=== PATIENT | male | born 1985 | race American Indian/Alaskan Native ===

== ENCOUNTER 2019-03-10 08:47 | Day surgery (SDC) | payer MEDICAID ==
[~2019-03-10] VITALS: Ht 188 cm; Wt 119.7 kg
[2019-03-10] MEDS ORDERED: LIDOcaine 1% 30ml preserv. free vial SQ STA (09:09)
[2019-03-10] MEDS ORDERED: LISI40TA4 PO (09:17)
[2019-03-10] MEDS ORDERED: LABE100T5 PO (09:17)
[2019-03-10] MEDS ORDERED: CALC667T6 PO (09:17)
[2019-03-10 09:21] VITALS: BP 115/67
[2019-03-10 09:32] LABS: BASOPHILS # (AUTO) 0.1 X10'3 (0-0.2); BASOPHILS % (AUTO) 1.2 % (0-1); EOSINOPHILS # (AUTO) 0.1 X10'3 (0-0.9); EOSINOPHILS % (AUTO) 2.8 % (0-6); HEMATOCRIT 28.1 % (42.0-52.0); HEMOGLOBIN 9.6 g/dl (14.0-17.9); LYMPHOCYTES # (AUTO) 1.5 X10'3 (1.1-4.8); LYMPHOCYTES % (AUTO) 30.3 % (21-51); MEAN CORPUSCULAR HGB CONC 34.3 g/dL (33.0-36.5); MEAN PLATELET VOLUME 8.5 FL (7.4-10.4); MONOCYTES # (AUTO) 0.6 X10'3 (0-0.9); MONOCYTES % (AUTO) 11.4 % (2-12); NEUTROPHILS # (AUTO) 2.7 X10'3 (1.8-7.7); NEUTROPHILS % (AUTO) 54.3 % (42-75); PLATELET COUNT 53 X10'3 (140-440); RED BLOOD COUNT 2.46 X10'6 (4.70-6.10); RED CELL DISTRIBUTION WIDTH 16.5 % (11.5-14.5); WHITE BLOOD COUNT 5.1 X10'3 (4.5-11.0)
[2019-03-10 09:40] LABS: ALBUMIN 3.3 G/DL (3.4-5.0); ANION GAP 16 (8-16); BLOOD UREA NITROGEN 44 MG/DL (7-18); BUN/CREATININE RATIO 4.4 (5.4-32.0); CALCIUM 8.5 MG/DL (8.5-10.1); CHLORIDE 98 MMOL/L (99-107); CREATININE 10.02 MG/DL (0.60-1.10); GLUCOSE 96 MG/DL (70-104); POTASSIUM 4.9 MMOL/L (3.5-5.1); SODIUM 136 MMOL/L (135-145); TOTAL CARBON DIOXIDE 21.9 MMOL/L (24-32); eGFR 6 ML/MIN
[2019-03-10 09:45] VITALS: BP 115/67
[2019-03-10 09:50] VITALS: BP 114/62
[2019-03-10 10:07] LABS: ANISOCYTOSIS 1+; PLATELET ESTIMATE DECREASED
== END 2019-03-10 10:00 | disposition home or self-care (01) ==
LOC: SSTAY O 08:47
PROVIDERS: ATTEND Radiology Diagnostic Radiology
DX: T82.42XA Displacement of vascular dialysis catheter, initial encounter (principal); Z79.899 Other long term (current) drug therapy; Z98.890 Other specified postprocedural states; Y84.1 Kidney dialysis as the cause of abnormal reaction of the patient, or of later complication, without mention of misadventure at the time of the procedure; Y92.89 Other specified places as the place of occurrence of the external cause
CPT/HCPCS: 36415; 36589; 80048; 85025; 85610; J2001